=== PATIENT | male | born 1960 | race Caucasian/White ===

== ENCOUNTER 2017-10-17 17:03 | Emergency (ER) | payer MEDICAID, OTHER ==
--- NOTE | 2017-10-17 17:58 | EDM.PDOC ---
ED HPI GENERAL MEDICAL PROBLEM - General Chief Complaint: Gastrointestinal Problem Stated Complaint: BLOOD IN BOWELS Time Seen by Provider: 10/17/17 17:25 Source of Information: Reports: Patient History Limitations: Reports: No Limitations - History of Present Illness INITIAL COMMENTS - FREE TEXT/NARRATIVE: c/o blood in stool pt with blood with BM x 2, once yesterday and again today, pink color to water and small amount of blood on TP, a little more today, some RBC perhaps on stool altho pt not sure went to urgent care, Hemoccult was positive colonoscopy 11/20 was wnl, advised to return for repeat in 10y no pain, no cramping, no n/v, no f/c/d has BM daily, sometimes 3x/d, soft, no change, 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, drives [id number], works for [email or web address] [place], has a run tonight to [place], will be back by 6 AM, sleeps in his own bed nightly - Related Data Allergies Allergy/AdvReac Type Severity Reaction Status Date / Time SUSAN Inhibitors Allergy Cough Verified 10/17/17 17:21 Home Meds: Home Meds Aspirin [Johnny Chewable Aspirin] 81 mg PO ASDIRECTED 11/23/14 [History] Lisinopril [Lisinopril] 10 mg PO ASDIRECTED 10/17/17 [History] glipiZIDE [Glipizide ER] 5 mg PO ASDIRECTED 10/17/17 [History] Social & Family History - Tobacco Use Smoking Status *Q: Never Smoker Second Hand Smoke Exposure: No - Caffeine Use Caffeine Use: Reports: Coffee, Soda - Alcohol Use Days Per Week of Alcohol Use: 7 Number of Drinks Per Day: 3 Total Drinks Per Week: 21 - Recreational Drug Use Recreational Drug Use: No Drug Use in Last 12 Months: No ED ROS GENERAL - Review of Systems Review Of Systems: See Below Constitutional: Reports: No Symptoms HEENT: Reports: No Symptoms Respiratory: Reports: No Symptoms Cardiovascular: Reports: No Symptoms Endocrine: Reports: No Symptoms GI/Abdominal: Reports: Hematochezia : Reports: No Symptoms Musculoskeletal: Reports: No Symptoms Skin: Reports: No Symptoms Neurological: Reports: No Symptoms Psychiatric: Reports: No Symptoms Hematologic/Lymphatic: Reports: No Symptoms Immunologic: Reports: No Symptoms ED EXAM, GI/ABD - Physical Exam Exam: See Below Exam Limited By: No Limitations General Appearance: Alert, WD/WN, No Apparent Distress Nose: Normal Inspection, Normal Mucosa, No Blood Throat/Mouth: Normal Inspection, Normal Lips, Normal Voice, No Airway Compromise Head: Atraumatic, Normocephalic Neck: Normal Inspection, Supple, Non-Tender, Full Range of Motion Respiratory/Chest: No Respiratory Distress, Lungs Clear, Normal Breath Sounds, No Accessory Muscle Use, Chest Non-Tender Cardiovascular: Regular Rate, Rhythm, No Edema, No Gallop, No Murmur, No Rub GI/Abdominal Exam: Normal Bowel Sounds, Soft, Non-Tender, No Organomegaly, No Distention, No Mass, Other (NT to deep palp) Rectal (Males) Exam: Other (rectal with small ext hemorrhoid at 3 o'clock, mucosa appeared intact, no fissure, no erosions, nl tone, no internal hemorrhoid palpated, DANIEL limited by pt discomfort, prostate not examined) Back Exam: Normal Inspection, Full Range of Motion, NT Extremities: Normal Inspection, Normal Range of Motion, Non-Tender, No Pedal Edema Neurological: Alert, Oriented, CN II-XII Intact, Normal Cognition, No Motor/ Sensory Deficits Psychiatric: Normal Affect, Normal Mood Skin Exam: Warm, Dry, Intact, Normal Color, No Rash Lymphatic: No Adenopathy Course - Vital Signs Last Recorded V/S: Last Vital Signs Temp 36.3 C 10/17/17 17:23 Pulse 76 10/17/17 17:23 Resp 14 10/17/17 17:23 BP 141/89 H 10/17/17 17:23 Pulse Ox 100 10/17/17 17:23 - Orders/Labs/Meds Labs: Laboratory Tests 10/17/17 10/17/17 10/17/17 Range/Units 18:00 18:00 18:00 WBC 6.4 (4.5-12.0) X10-3/uL RBC 5.35 (4.30-5.75) x10(6)uL Hgb 15.3 (11.5-15.5) g/dL Hct 44.6 (30.0-51.3) % MCV 83.4 (80-96) fL MCH 28.7 (27.7-33.6) pg MCHC 34.4 (32.2-35.4) g/dL RDW 13.7 (11.5-15.5) % Plt Count 305 (125-369) X10(3)uL MPV 6.2 L (7.4-10.4) fL Neut % (Auto) 60.2 (46-82) % Lymph % (Auto) 25.0 (13-37) % Calvert % (Auto) 10.4 (4-12) % Eos % (Auto) 4 (1.0-5.0) % Baso % (Auto) 0 (0-2) % Neut # (Auto) 3.8 (1.6-8.3) # Lymph # (Auto) 1.6 (0.6-5.0) # Calvert # (Auto) 0.7 (0.0-1.3) # Eos # (Auto) 0.3 (0.0-0.8) # Baso # (Auto) 0.0 (0.0-0.2) # PT 11.5 H (8.7-11.1) INR 1.14 H (0.89-1.13) Sodium 141 (135-145) mmol/L Potassium 3.8 (3.5-5.3) mmol/L Chloride 105 (100-110) mmol/L Carbon Dioxide 26 (21-32) mmol/L BUN 18 (7-18) mg/dL Creatinine 1.0 (0.70-1.30) mg/dL Est Cr Clr Drug Dosing 86.18 mL/min Estimated GFR (MDRD) > 60 (>60) BUN/Creatinine Ratio 18.0 (9-20) Glucose 100 (80-116) mg/dL Calcium 8.7 (8.6-10.2) mg/dL Total Bilirubin 0.4 (0.1-1.3) mg/dL AST 22 (5-25) IU/L ALT 47 H (12-36) U/L Alkaline Phosphatase 64 (56-112) IU/L Total Protein 7.2 (6.0-8.0) g/dL Albumin 3.7 (3.5-5.2) g/dL Globulin 3.5 g/dL Albumin/Globulin Ratio 1.1 - Re-Assessments/Exams Free Text/Narrative Re-Assessment/Exam: 10/17/17 18:31 the external hemorrhoid appears to be the source of bleeding, labs stable with hgb 15 Departure - Departure Time of Disposition: 18:30 Disposition: Home, Self-Care 01 Condition: Good Clinical Impression: Hematochezia, External hemorrhoid - Discharge Information Instructions: Hemorrhoids Referrals: Farshad Freed MD [Primary Care Provider] - Forms: ED Department Discharge Additional Instructions: Avoid bearing down with bowel movements. Maintain fiber in diet to keep stool soft and moist. Be gentle when wiping your bottom with toilet paper. See your doctor in 3-4 days. Your doctor may repeat your blood counts. On occasion, a repeat colonoscopy is recommended, which you will want to discuss with your physician. If you have increased bleeding or other symptoms, return to ED. Call your Physician or Return to Emergency Department if: * Your condition worsens in any way. * You develop fever greater than 100.4. * You have vomitting that does not stop with medications. * You have pain that is not controlled with medications.
[2017-10-17 18:47] VITALS: BP 129/71
== END 2017-10-17 18:44 | disposition home or self-care (01) ==
LOC: FB.ED 17:03
DX: K64.4 Residual hemorrhoidal skin tags (principal); K62.5 Hemorrhage of anus and rectum; Z79.82 Long term (current) use of aspirin; Z88.8 Allergy status to other drugs, medicaments and biological substances
CPT/HCPCS: 36415; 80053; 82272; 85025; 85610; 99283

== ENCOUNTER 2025-04-30 12:03 | Emergency (ER) | payer SELFPAY ==
[2025-04-30] MEDS ORDERED: Sodium Chloride 0.9% 10 ML Syringe FLUSH PRN (12:36)
[2025-04-30 12:47] LABS: BASOPHILS ABSOLUTE AUTO 0.0 x10-3/uL (0.0-0.3); BASOPHILS PERCENT AUTO 0.4 % (0.3-3.8); EOSINOPHILS ABSOLUTE AUTO 0.2 x10-3/uL (0.0-0.6); EOSINOPHILS PERCENT AUTO 2.6 % (0.1-6.8); LYMPHOCYTES ABSOLUTE AUTO 1.5 x10-3/uL (0.5-4.5); LYMPHOCYTES PERCENT AUTO 22.2 % (15.8-45.3); MEAN PLATELET VOLUME 6.6 fL (6.7-11.0); MONOCYTES ABSOLUTE AUTO 0.7 x10-3/uL (0.0-1.2); MONOCYTES PERCENT AUTO 10.8 % (5.5-15.2); NEUTROPHILS ABSOLUTE AUTO 4.4 x10-3/uL (1.7-6.9); NEUTROPHILS PERCENT AUTO 64.0 % (40.3-71.8); PLATELET COUNT,PLT 255 x10(3)uL (117-477); RED BLOOD CELL COUNT 5.18 x10(6)uL (3.90-5.90); RED CELL DISTRIBUTION WIDTH 13.9 % (12.4-15.0); WHITE BLOOD CELL COUNT,WBC 6.9 x10-3/uL (3.2-10.1)
[2025-04-30 12:58] LABS: ALANINE AMINOTRANSFERASE,ALT 36.0 U/L (12-36); ASPARTATE AMNIOTRANSFERASE,AST 18.0 IU/L (5-25); BILIRUBIN DIRECT 0.19 mg/dL (0.10-0.20); BILIRUBIN TOTAL 0.7 mg/dL (0.1-1.3); PROTEIN TOTAL,TP 7.3 g/dL (6.0-8.0)
[2025-04-30 13:59] LABS: GLUCOSE,URINE 100 mg/dL (NORMAL); OCCULT BLOOD,URINE NEGATIVE (NEGATIVE)
[2025-04-30 14:01] LABS: APPEARANCE,URINE CLEAR (CLEAR)
[2025-04-30 14:11] LABS: AMPHETAMINES SCREEN, URINE NEGATIVE (NEGATIVE); METHADONE SCREEN, URINE NEGATIVE (NEGATIVE); METHAMPHETAMINE SCREEN, URINE NEGATIVE (NEGATIVE); OXYCODONE SCREEN,URINE NEGATIVE (NEGATIVE)
[2025-04-30 14:12] LABS: BUPRENORPHINE SCREEN,URINE NEGATIVE (NEGATIVE)
[2025-04-30] MEDS: Metoprolol Tartrate 5 MG/5 ML SDV IVPUSH SCH (14:27)
[2025-04-30 14:45] VITALS: BP 164/92; PULSE 66
== END 2025-04-30 15:19 ==
LOC: FB.ED 12:03
DX: R07.9 Chest pain, unspecified (principal); R00.0 Tachycardia, unspecified; E11.65 Type 2 diabetes mellitus with hyperglycemia; I10 Essential (primary) hypertension; E78.00 Pure hypercholesterolemia, unspecified; E11.9 Type 2 diabetes mellitus without complications; Z88.8 Allergy status to other drugs, medicaments and biological substances; Z79.84 Long term (current) use of oral hypoglycemic drugs; Z79.899 Other long term (current) drug therapy
CPT/HCPCS: 36415; 71045; 80076; 80307; 81003; 83735; 84484; 85025; 85379; 93005; 96361; 96374; 99285; A9270; J3490; J7040